=== PATIENT | female | born 1975 | race Caucasian/White ===

== ENCOUNTER 2018-05-13 16:34 | Emergency (ER) | payer OTHER, MEDICAID, SELFPAY ==
[2018-05-13 16:37] VITALS: BP 104/67; PULSE 67; RESP 16; TEMP 36.7; O2SAT 99; BMI 33.9
[2018-05-13 17:19] LABS: Add Manual Diff / Slide Review NO; Basophils Percent Auto 0.7 % (0-2); Eosinophils Percent Auto 1.1 % (2-4); Hemoglobin 11.3 g/dL (12.0-16.0); Lymphocytes Percent Auto 25.2 % (25-40); Mean Corpuscular HGB Conc 33.3 % (30-36); Mean Corpuscular Hemoglobin 28.7 PG (26-34); Mean Corpuscular Volume 86.4 fL (80-100); Monocytes Percent Auto 6.6 % (3-14); Neutrophils Absolute Auto 4200 /uL (3000-5900); Neutrophils Percent Auto 66.4 % (50-75); Platelet Count 358 X10^3/uL (150-400); Red Blood Cell Count 3.94 X10^6/uL (4.0-5.2); Red Cell Distribution Width 13.7 % (11.6-14.8); White Blood Cell Count 6.4 X10^3/uL (4.5-11.0)
--- NOTE | 2018-05-13 17:24 | ED.PSYCH ---
HPI - Psych General Chief Complaint: Psychiatric Symptoms Stated Complaint: suicidal Time Seen by Provider: 05/13/18 16:48 Source: patient Mode of arrival: EMS Limitations: no limitations History of Present Illness HPI Narrative: Patient is a 42-year-old female with a history of PTSD, generalized anxiety disorder and depression brought in by EMS after she had thoughts of suicide earlier today. Patient states that she has been battling this for some time now. Has been to the emergency department 2 times in the past and has been admitted to the hospital in the past for similar thoughts. She is seen by a therapist at the [facility] and her primary doctor is also at the [facility] however she stated that her therapist has recently left. She states that her primary doctor has been refilling her psychiatric medications. 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 She states that she frequently has thoughts of killing herself however has never acted on it. She states that today she had thoughts of [place]. She states that she has had these thoughts in the past but today they were much more pervasive. She states that every time she tries over the bridge it ?calls to her ?patient is here voluntarily. She states she feels like she needs admitted to the hospital. She denies any alcohol use in the past 24 hr denies any drug use. Related Data Home Medications Medication Instructions Recorded Confirmed fluoxetine 60 mg PO DAILY 05/13/18 05/13/18 gabapentin 400 mg PO TID 05/13/18 05/13/18 lamotrigine 150 mg PO DAILY 05/13/18 05/13/18 trazodone 50 mg PO BEDTIME 05/13/18 05/13/18 zolpidem 5 mg PO BEDTIME PRN 05/13/18 05/13/18 Allergies Allergy/AdvReac Type Severity Reaction Status Date / Time No Known Drug Allergies Allergy Verified 05/13/18 16:37 Review of Systems Constitutional Denies fatigue, Denies fever(s) and Denies headache(s) ENT Ears, Nose, Mouth, and Throat: Denies dizziness and Denies headache(s) Cardiovascular Denies chest pain, Denies palpitations and Denies dyspnea Respiratory Denies cough and Denies dyspnea Gastrointestinal Gastrointestinal: Denies abdominal pain, Denies diarrhea, Denies nausea and Denies vomiting Genitourinary Denies dysuria Integumentary/Breasts Denies lesions and Denies rash Neurologic Denies confusion, Denies dizziness and Denies headache(s) Psychiatric Reports anxiety, Denies confusion, Reports depression, Denies panic attacks, Denies hallucinations, Denies homicidal ideation and Reports suicidal ideation Endocrine Denies fatigue and Denies palpitations Hematologic/Lymphatic Denies easy bleeding and Denies easy bruising Exam Initial Vital Signs Initial Vital Signs: Vital Signs Temperature 98.1 F 05/13/18 16:37 Pulse Rate 67 05/13/18 16:37 Respiratory Rate 16 05/13/18 16:37 Blood Pressure 104/67 05/13/18 16:37 Pulse Oximetry 99 05/13/18 16:37 Const General: cooperative, healthy appearing, comfortable, well developed and No acute distress Orientation: alert, awake and oriented x3 HENMT Head: normal to inspection and normocephalic Resp Effort & Inspection: normal respiratory effort Auscultation: clear to auscultation bilaterally Cardio Rate: regular rate Rhythm: regular rhythm Skin Lesions: no lesions Rashes: no rashes Wounds: no wounds Neuro General: alert, awake and oriented x3 Cognition: normal cognition Speech: speech normal Gait: normal gait Motor: muscle tone normal throughout Sensory Exam: no sensory deficits noted Extrem General: normal to inspection and capillary refill normal Psych Appearance: grossly normal and well kempt Mental Status: other (Depressed moved) Speech and Movement: speech and movement normal and not agitated Mood: not anxious and other (Depressed moved) Affect: other (Depressed affect) Attitude: cooperative, not belligerent and answers questions Thought Process: normal Thought Content: normal Course Orders Ordered: ED Orders 05/13/18 16:48 Rapid Drug Screen, Urine Stat 05/13/18 17:03 Acetaminophen Stat Complete Blood Count AUTO DIFF Stat Comprehensive Metabolic Panel Stat Ethanol (ETOH) Stat Salicylate Stat Vital Signs - 8 hr 05/13/18 16:37 Temperature 98.1 F Pulse Rate 67 Respiratory Rate 16 Blood Pressure 104/67 Pulse Oximetry 99 MDM - Psych Lab Data Attestation: I reviewed the patient's lab results. Result diagrams: 05/13/18 17:03 05/13/18 17:03 Lab Results 05/13/18 05/13/18 Range/Units 17:03 17:03 WBC 6.4 (4.5-11.0) X10^3/uL RBC 3.94 L (4.0-5.2) X10^6/uL Hgb 11.3 L (12.0-16.0) g/dL Hct 34.0 L (36-46) % MCV 86.4 (80-100) fL MCH 28.7 (26-34) PG MCHC 33.3 (30-36) % RDW 13.7 (11.6-14.8) % Plt Count 358 (150-400) X10^3/uL Neut % (Auto) 66.4 (50-75) % Lymph % (Auto) 25.2 (25-40) % Simpson % (Auto) 6.6 (3-14) % Eos % (Auto) 1.1 L (2-4) % Baso % (Auto) 0.7 (0-2) % Neut # (Auto) 4200 (8690-8070) /uL Sodium 140 (137-145) mmol/L Potassium 4.0 (3.4-5.1) mmol/L Chloride 102 (98-107) mmol/L Carbon Dioxide 29 (22-32) mmol/L BUN 13 (7-17) mg/dL Creatinine 0.70 (0.52-1.04) mg/dL Estimated GFR > 60.0 (>60) mL/min BUN/Creatinine Ratio 18.6 (6-22) Glucose 116 H (70-100) mg/dL Calcium 8.9 (8.4-10.2) mg/dL Total Bilirubin 0.4 (0.2-1.3) mg/dL AST 26 (14-36) IU/L ALT 26 (9-52) IU/L Alkaline Phosphatase 107 (38-126) U/L Total Protein 7.2 (6.3-8.2) g/dL Albumin 4.1 (3.5-5.0) g/dL Globulin 3.1 (1.7-4.1) g/dL Albumin/Globulin Ratio 1.3 (1.0-2.8) Salicylates < 1.0 (<20) mg/dL Acetaminophen < 10 L (10-30) ug/mL Ethyl Alcohol < 10 mg/dL MDM Narrative Medical decision making narrative: Patient brought in by EMS. Is here voluntarily. Labs pending. Patient with chronic depression and chronic suicidality however has been more pervasive over the past 24 hr. Patient states that she feels like she needs admitted to the hospital for her thoughts that she was having today. Patient has been calm and cooperative. No signs of toxic ingestion. Contacted social work to help with placement while labs are pending. Care turned over to night provider at change of shift. Will follow up on pending labs and social work evaluation and disposition. Discharge Plan Departure Prescriptions: No Action lamotrigine 150 mg Tablet 150 mg PO DAILY RF: 0 trazodone 50 mg Tablet 50 mg PO BEDTIME RF: 0 gabapentin 400 mg Capsule 400 mg PO TID RF: 0 zolpidem 5 mg Tablet 5 mg PO BEDTIME PRN (Reason: Sleep) RF: 0 fluoxetine 20 mg Capsule 60 mg PO DAILY RF: 0
[2018-05-13 17:33] LABS: Acetaminophen < 10 ug/mL (10-30); Alanine Aminotransferase 26 IU/L (9-52); Albumin 4.1 g/dL (3.5-5.0); Albumin Globulin Ratio 1.3 (1.0-2.8); Alkaline Phosphatase 107 U/L (38-126); Aspartate Aminotransferase 26 IU/L (14-36); BUN Creatinine Ratio 18.6 (6-22); Bilirubin Total 0.4 mg/dL (0.2-1.3); Blood Urea Nitrogen 13 mg/dL (7-17); Calcium 8.9 mg/dL (8.4-10.2); Carbon Dioxide 29 mmol/L (22-32); Chloride 102 mmol/L (98-107); Estimated Glomerular Filt Rate > 60.0 mL/min (>60); Ethanol (ETOH) < 10 mg/dL; Globulin 3.1 g/dL (1.7-4.1); Glucose 116 mg/dL (70-100); HEMOLYSIS < 15 (0-50); Sodium 140 mmol/L (137-145); Total Protein 7.2 g/dL (6.3-8.2)
[2018-05-13 17:35] LABS: Salicylate < 1.0 mg/dL (<20)
--- NOTE | 2018-05-13 18:13 | PC.NURSE ---
social science research assistant at bedside.
--- NOTE | 2018-05-13 19:30 | PC.NURSE ---
fly worker Carrie in room updating patient on open bed at [facility], [facility] faxing documents and awaiting [facility] to call back to speak with pt once fax is received. Pt states she is willing to accept bed placement at [facility], ambulated to bathroom with steady gait to give poc urine sample.
[2018-05-13 19:51] LABS: Urine Amphetamines Negative (Negative); Urine Barbiturates Negative (Negative); Urine Benzodiazepines Negative (Negative); Urine Cocaine Negative (Negative); Urine MDMA Negative (Negative); Urine Methadone Negative (Negative); Urine Methamphetamines Negative (Negative); Urine Morphine/Opi cutoff 2000 Negative (Negative); Urine Oxycodone Negative (Negative); Urine Phencyclidine Negative (Negative); Urine Tetrahydrocannabinol Positive (Negative); Urine Tricyclic Antidepressant Negative (Negative)
[2018-05-13 20:46] VITALS: BP 102/68; PULSE 62; RESP 16; O2SAT 99
[2018-05-13 21:30] VITALS: BP 128/79; PULSE 70; RESP 18; O2SAT 99
--- NOTE | 2018-05-13 23:00 | PC.NURSE ---
[facility] is holding bed placement for pt confirmed by [facility]IM[facility] Ru[facility]. Pt has verbally accepted placement to SHIMA Ruiz and ED RN, contracted for safety and transporting pt pov. Dr Lentz aware.
[2018-05-13 23:13] VITALS: BP 98/63; PULSE 62; O2SAT 99
== END 2018-05-13 23:15 ==
PROVIDERS: Emergency Medicine; Emergency Provider Emergency Medicine
DX: R45.851 Suicidal ideations (principal)
CPT/HCPCS: 80053; 80305; 80320; 80329; 81003; 81025; 85025; 99283; 99285; G0480